=== PATIENT | female | born 1995 | race Caucasian/White ===

== ENCOUNTER 2021-02-01 10:19 | Outpatient (REF) | payer BC, SELFPAY ==
[2021-02-01 12:41] LABS: MANUAL DIFF FLAG NO
[2021-02-01 12:43] LABS: Basophils Percent Auto 0.3 % (0-2); Eosinophils Absolute Auto 0.1 X10*3/uL (0.0-0.4); Hemoglobin 12.9 g/dl (12.0-16.0); Imm Gran Abs Auto 0.03 X10*3/uL (0.00-0.03); Imm Gran Pct Auto 0.3 % (0.0-0.4); Lymphocytes Absolute Auto 2.7 X10*3/uL (1.2-4.9); Lymphocytes Percent Auto 25.4 % (20-40); Mean Corpuscular HGB Conc 33.1 g/dl (31.0-35.0); Mean Corpuscular Hemoglobin 28.4 pg (27.0-33.0); Mean Corpuscular Volume 85.9 fL (80.0-98.0); Mean Platelet Volume 12.7 fL (9.4-12.3); Monocytes Absolute Auto 0.7 X10*3/uL (0.1-1.2); Monocytes Percent Auto 6.8 % (2-11); Neutrophils Absolute Auto 7.1 x10*3/uL (2.0-8.3); Neutrophils Percent Auto 66.2 % (45-73); Platelet Count 242 X10*3/uL (160-400); Red Blood Count 4.54 X10*6/uL (4.20-5.50); Red Cell Distribution Width 12.8 % (11.0-16.0); White Blood Count 10.7 X10*3/uL (4.8-10.8)
[2021-02-01 13:29] LABS: Alanine Aminotransferase 18 U/L (0-31); Albumin Level 4.1 g/dL (3.5-5.0); Alkaline Phosphatase 31 U/L (39-117); Anion Gap 13 (12-20); Aspartate Amino Transferase 20 U/L (5-31); Bilirubin Total 0.4 mg/dL (0.0-1.0); Blood Urea Nitrogen 9 mg/dL (9-16); Calcium 9.1 mg/dL (8.4-10.2); Carbon Dioxide 23 mmol/L (22-29); Chloride 105 mmol/L (96-108); Cholesterol 231 mg/dL; Estimated Glomerular Filt Rate > 60; Glucose Fasting 69 mg/dL (60-99); HDL Cholesterol 66 mg/dL; LDL Cholesterol Calculated 146 mg/dl; Potassium 4.2 mmol/L (3.3-5.1); Sodium 137 mmol/L (135-145); Total Protein 6.9 g/dL (6.5-8.0); Triglycerides 97 mg/dL
[2021-02-01 13:50] LABS: Vitamin D 25-OH Total 25.3 ng/mL (>30)
== END 2021-02-01 10:20 | disposition home or self-care (01) ==
LOC: HO.MANLDS 10:19
PROVIDERS: PCP Physician Assistant; Visit Provider Physician Assistant
DX: Z00.00 Encounter for general adult medical examination without abnormal findings (principal); E55.9 Vitamin D deficiency, unspecified
CPT/HCPCS: 36415; 80053; 80061; 82306; 85025

== ENCOUNTER 2022-02-23 11:50 | Outpatient (REF) | payer OTHER, SELFPAY ==
[2022-02-23 14:02] LABS: MANUAL DIFF FLAG NO
[2022-02-23 14:16] LABS: Basophils Absolute Auto 0.1 X10*3/uL (0.0-0.2); Basophils Percent Auto 0.6 % (0-2); Eosinophils Absolute Auto 0.1 X10*3/uL (0.0-0.4); Eosinophils Percent Auto 1.1 % (0-4); Hematocrit 41.4 % (37.0-47.0); Hemoglobin 13.7 g/dl (12.0-16.0); Imm Gran Abs Auto 0.03 X10*3/uL (0.00-0.03); Imm Gran Pct Auto 0.3 % (0.0-0.4); Lymphocytes Absolute Auto 2.4 X10*3/uL (1.2-4.9); Lymphocytes Percent Auto 22.5 % (20-40); Mean Corpuscular HGB Conc 33.1 g/dl (31.0-35.0); Mean Corpuscular Hemoglobin 28.4 pg (27.0-33.0); Mean Corpuscular Volume 85.7 fL (80.0-98.0); Mean Platelet Volume 12.4 fL (9.4-12.3); Monocytes Absolute Auto 0.7 X10*3/uL (0.1-1.2); Monocytes Percent Auto 6.9 % (2-11); Neutrophils Absolute Auto 7.4 x10*3/uL (2.0-8.3); Neutrophils Percent Auto 68.6 % (45-73); Platelet Count 268 X10*3/uL (160-400); Red Blood Count 4.83 X10*6/uL (4.20-5.50); Red Cell Distribution Width 12.8 % (11.0-16.0); White Blood Count 10.8 X10*3/uL (4.8-10.8)
[2022-02-23 15:08] LABS: Alanine Aminotransferase 20 U/L (0-31); Albumin Level 4.1 g/dL (3.5-5.0); Alkaline Phosphatase 36 U/L (39-117); Anion Gap 11 (12-20); Aspartate Amino Transferase 18 U/L (5-31); Bilirubin Total 0.5 mg/dL (0.0-1.0); Blood Urea Nitrogen 11 mg/dL (9-16); Calcium 9.2 mg/dL (8.4-10.2); Carbon Dioxide 28 mmol/L (22-29); Chloride 101 mmol/L (96-108); Estimated Glomerular Filt Rate > 60; Ferritin 53 ng/mL (10-122); Free T4 (Free Thyroxine) 1.12 ng/dL (0.71-1.85); Glucose Random 69 mg/dL (60-115); Iron 107 mcg/dL (30-160); Percent Iron Saturation 29 % (15-50); Potassium 4.4 mmol/L (3.3-5.1); Sodium 136 mmol/L (135-145); Thyroid Stimulating Hormone 0.37 uIU/mL (0.32-4.0); Total Iron Binding Capacity 363 mcg/dL (228-428); Total Protein 6.8 g/dL (6.5-8.0); Unsaturated Iron Binding 256 ug/dL; Vitamin D 25-OH Total 24.8 ng/mL (>30)
[2022-02-23 15:19] LABS: Folate 9.2 ng/mL (> or = 4.0); Vitamin B12 372 pg/mL (200-900)
== END 2022-02-23 11:51 | disposition home or self-care (01) ==
LOC: HO.MANLDS 11:50
PROVIDERS: Visit Provider Physician Assistant
DX: R53.83 Other fatigue (principal)
CPT/HCPCS: 36415; 80053; 82306; 82607; 82728; 82746; 83540; 84439; 84443; 85025

== ENCOUNTER 2022-04-06 09:01 | Outpatient (REF) | payer OTHER, SELFPAY ==
[2022-04-06 12:48] LABS: Vitamin D 25-OH Total 21.7 ng/mL (>30)
== END 2022-04-06 09:02 | disposition home or self-care (01) ==
LOC: HO.MANLDS 09:01
PROVIDERS: Visit Provider Physician Assistant
DX: Z00.00 Encounter for general adult medical examination without abnormal findings (principal)
CPT/HCPCS: 36415; 82306

== ENCOUNTER 2023-06-10 11:01 | Outpatient (REF) | payer OTHER, SELFPAY ==
[2023-06-10 13:20] LABS: MANUAL DIFF FLAG NO
[2023-06-10 13:47] LABS: Basophils Percent Auto 0.5 % (0-2); Eosinophils Absolute Auto 0.1 X10*3/uL (0.0-0.4); Eosinophils Percent Auto 1.2 % (0-4); Hematocrit 43.5 % (37.0-47.0); Hemoglobin 14.5 g/dl (12.0-16.0); Imm Gran Abs Auto 0.03 X10*3/uL (0.00-0.03); Imm Gran Pct Auto 0.4 % (0.0-0.4); Lymphocytes Absolute Auto 2.4 X10*3/uL (1.2-4.9); Mean Corpuscular HGB Conc 33.3 g/dl (31.0-35.0); Mean Corpuscular Hemoglobin 28.5 pg (27.0-33.0); Mean Corpuscular Volume 85.6 fL (80.0-98.0); Mean Platelet Volume 12.3 fL (9.4-12.3); Monocytes Absolute Auto 0.6 X10*3/uL (0.1-1.2); Monocytes Percent Auto 6.4 % (2-11); Neutrophils Absolute Auto 5.4 x10*3/uL (2.0-8.3); Neutrophils Percent Auto 63.5 % (45-73); Platelet Count 291 X10*3/uL (160-400); Red Blood Count 5.08 X10*6/uL (4.20-5.50); Red Cell Distribution Width 12.9 % (11.0-16.0); White Blood Count 8.5 X10*3/uL (4.8-10.8)
[2023-06-10 13:49] LABS: Appearance Urine Clear; Color Urine Yellow; Glucose Urine UA Negative (Negative); Leukocyte Esterase Urine Trace (Negative); Nitrite Urine Negative (Negative); PH 7.5 (5.0-9.0); Specific Gravity - Urine 1.015 (1.005-1.025); UMIC TRIGGER UACC YES; Urine Blood Negative (Negative); Urine Ketones Negative (Negative); Urine Protein Negative (Neg-Trace)
[2023-06-10 13:56] LABS: Bacteria Urine None Seen (None Seen); Hyaline Casts Urine 0-2 /LPF (0-2); RBC Urine 0-2 /HPF (0-2); Squamous Epithelial Cell Urine 0-2 /HPF (0-2); WBC Urine 0-5 /HPF (0-5)
[2023-06-10 14:25] LABS: Cortisol Random 14.3 ug/dL
[2023-06-10 14:38] LABS: Alanine Aminotransferase 23 U/L (0-31); Albumin Level 4.3 g/dL (3.5-5.0); Alkaline Phosphatase 35 U/L (39-117); Anion Gap 14 (12-20); Aspartate Amino Transferase 22 U/L (5-31); Bilirubin Total 0.3 mg/dL (0.0-1.0); Blood Urea Nitrogen 9 mg/dL (9-16); Calcium 9.2 mg/dL (8.4-10.2); Carbon Dioxide 24 mmol/L (22-29); Chloride 105 mmol/L (96-108); Estimated Glomerular Filt Rate > 60; Glucose Random 78 mg/dL (60-115); Iron 96 mcg/dL (30-160); Percent Iron Saturation 25 % (15-50); Potassium 3.8 mmol/L (3.3-5.1); Sodium 139 mmol/L (135-145); Total Iron Binding Capacity 377 mcg/dL (228-428); Total Protein 7.6 g/dL (6.5-8.0); Unsaturated Iron Binding 281 ug/dL
[2023-06-10 14:39] LABS: Ferritin 52 ng/mL (10-122)
[2023-06-11 18:40] LABS: Thyroid Peroxidase Antibodies <1 IU/mL (<9)
[2023-06-11 18:48] LABS: DHEA Sulfate 189 mcg/dL (14-349)
[2023-06-11 21:58] LABS: Follicle Stimulating Hormone <0.7 mIU/mL; Lutenizing Hormone <0.2 mIU/mL; Prolactin 7.1 ng/mL
[2023-06-14 15:18] LABS: Testosterone, Total 7 ng/dL (2-45)
[2023-06-15 15:59] LABS: Progesterone <0.1 ng/mL
[2023-06-18 22:43] LABS: Estrogen 61 pg/mL
[2023-06-23 04:38] LABS: Estradiol Free <0.04 pg/mL; Estradiol, Ultrasensitive <2 pg/mL
== END 2023-06-10 11:02 | disposition home or self-care (01) ==
LOC: HO.MANLDS 11:01
PROVIDERS: Visit Provider Physician Assistant
DX: R30.0 Dysuria (principal); N94.5 Secondary dysmenorrhea
CPT/HCPCS: 36415; 80053; 81001; 82533; 82627; 82670; 82672; 82681; 82728; 83001; 83002; 83540; 84144; 84146; 84403; 84439; 84443; 85025; 86376